=== PATIENT | female | born 1975 | race Caucasian/White ===

== ENCOUNTER 2019-04-25 07:32 | Day surgery (SDC) | payer BC, OTHER ==
[2019-04-25] MEDS ORDERED: Dexamethasone 4 MG/ML SDV IV ONE (07:33)
[2019-04-25] MEDS ORDERED: Sodium Chloride 0.9% 10 ML Syringe IV ONE (07:33)
[2019-04-25] MEDS ORDERED: Midazolam 1 MG/ML 2 ML SDV IV ONE (07:33)
[2019-04-25] MEDS ORDERED: Phenylephrine 10% Ophth Soln 5 ML Bot EYERT PRN (08:00)
[2019-04-25] MEDS ORDERED: Acetaminophen 325 MG Tab PO PRN (08:00)
[2019-04-25] MEDS ORDERED: Ondansetron 4 MG/2 ML SDV IVPUSH PRN (08:00)
[2019-04-25] MEDS: Sodium Chloride 0.9% 10 ML Syringe FLUSH PRN (08:09)
[2019-04-25] MEDS: Proparacaine 0.5% Ophth Soln 15 ML Bottle EYERT ONE (08:12)
[2019-04-25] MEDS: Povidone-Iodine 5% Sterile Ophth Soln 30 ML Bottle EYERT ONE ×2 (08:12→09:07)
[2019-04-25] MEDS: Moxifloxacin 0.5% Ophth Soln 3 ML Bottle EYERT ONE (08:13)
[2019-04-25] MEDS: Phenylephrine 10% Ophth Soln 5 ML Bot EYERT ONE (08:14)
[2019-04-25] MEDS: Timolol Maleate 0.5% Ophth Soln 5 ML Bottle EYERT ONE (08:15)
[2019-04-25] MEDS: Cataract Ophth Solution EYERT ONE (08:15)
[2019-04-25] MEDS: Lidocaine 1% 30 ML SDV INJECT ONE (09:06)
[2019-04-25] MEDS: Diclofenac Sodium 0.1% Ophth Soln 5 ML Bottle EYERT ONE (09:07)
[2019-04-25] MEDS: Dexamethasone/Tobramycin 0.1-0.3% Ophth Oint 3.5 GM Tube EYERT ONE (09:07)
[2019-04-25] MEDS: Tetracaine HCl/PF 0.5% 4 ML Bottle EYERT ONE (09:07)
[2019-04-25] MEDS: Apraclonidine 0.5% Ophth Soln 5 ML Bot EYERT ONE (09:07)
[2019-04-25] MEDS: Chondroitin Sulfate/Hyaluronate Sodium Ophth Inj 0.5 ML Syringe IOCULAR ONE (09:08)
[2019-04-25] MEDS: Chondroitin Sulfate/Hyaluronate Sodium Ophth Inj 0.75 ML Syringe EYERT ONE (09:08)
[2019-04-25] MEDS: Vancomycin 500 MG SDV EYERT ONE (09:08)
[2019-04-25] MEDS: Balanced Salt Solution Ophth Irrig 500 ML Bottle IOCULAR ONE (09:08)
[2019-04-25] MEDS: Carbachol 0.01% Intraocular 1.5 ML Vial EYERT ONE (09:09)
--- NOTE | 2019-04-25 15:22 | OR ---
DATE: 04/25/2019 PREOPERATIVE DIAGNOSES: 1. Visually significant mixed cataract, right eye. 2. Primary open angle glaucoma, right eye. POSTOPERATIVE DIAGNOSES: 1. Visually significant mixed cataract, right eye. 2. Primary open angle glaucoma, right eye. PROCEDURES: 1. Extracapsular cataract extraction with intraocular lens implant. 2. Placement of iStent for glaucoma control. SURGEON: Carlos Oh MD ANESTHESIA: Local MAC. INDICATION: The patient was seen in the clinic. She has complained of a slow progressive decrease in vision, difficulty seeing television, difficulty seeing up close. Visually significant cataract is noted. She also has mild primary open-angle glaucoma. I explained the options, offered cataract surgery, and I explained risks, including, but not limited to, infection, retinal detachment, loss of vision, need for additional surgery, amongst others. We discussed implant options. She has requested a monofocal implant. I offered surgery with or without the iStent. She requested the iStent procedure. OPERATIVE DESCRIPTION: The patient was prepped and draped in a sterile fashion and topical anesthesia was applied. Attention was placed on the operative eye. A sterile lid speculum was placed to allow operative exposure. Paracentesis was made temporal. Intracameral lidocaine was administered. Viscoelastic was injected. A full-thickness corneal incision was made using the trapezoidal blade. Bent needle cystotome was then used to make a small jose in the anterior capsule and a 360-degree curvilinear capsulorrhexis was created. Nucleus was then hydrodissected and hydrodelineated using balanced saline solution. Nucleus was then decompressed centrally and rotated and noted to be free of adhesions. Nucleus was then removed using the phacoemulsification handpiece. Additional viscoelastic was then injected into the capsular bag and the intraocular lens was inserted into the capsular bag. The iStent portion of the procedure was then performed. Following removal of the nucleus and cortex, the irrigation and aspiration handpiece was inserted to remove viscoelastic from the posterior surface of the IOL. Additional viscoelastic was then inserted into the anterior chamber angle directly opposite the corneal incision. Miochol was injected into the nasal iris to promote pupillary contraction. The patient's head was then rotated 35 degrees away from the initial position. The operating microscope was also rotated 35 degrees to achieve the proper orientation. The gonioprism was then placed onto the eye. The iStent was then inserted into the anterior chamber with the right hand and the stent was introduced into the pigmented trabecular meshwork. The stent was advanced beneath the trabecular meshwork until approximately two-thirds of the body was covered and then the stent was released from the insertion device. The stent was then tapped into its final resting position using the insertion device. The device was then reinspected to ensure that it was securely in position. The viscoelastic was aspirated from the anterior chamber. Wound and paracentesis sites were hydrated using balanced saline solution. Vancomycin 0.1 mL was injected into the anterior chamber. Intraocular lens was inspected and noted to be clear and well centered. Postoperative drops were placed and a sterile eye patch and shield were placed over the operative eye. The patient was then transported to the postoperative recovery area having tolerated the procedure well. No complications occurred. [facility] /[id number]
== END 2019-04-25 10:25 | disposition home or self-care (01) ==
LOC: DL.SDS 07:32
PROVIDERS: ATTEND Ophthalmology
DX: H40.1110 Primary open-angle glaucoma, right eye, stage unspecified (principal); H26.9 Unspecified cataract; E78.5 Hyperlipidemia, unspecified; E03.9 Hypothyroidism, unspecified; E66.9 Obesity, unspecified; L40.9 Psoriasis, unspecified; Q96.4 Mosaicism, 45, X/other cell line(s) with abnormal sex chromosome; Z68.37 Body mass index [BMI] 37.0-37.9, adult; Z79.899 Other long term (current) drug therapy; Z88.2 Allergy status to sulfonamides; Z88.1 Allergy status to other antibiotic agents; Z91.09 Other allergy status, other than to drugs and biological substances; Z91.048 Other nonmedicinal substance allergy status
CPT/HCPCS: 81025; A9270-GY; C1780; C1783; J1100; J2001; J2250; J3370

== ENCOUNTER 2023-10-15 08:50 | Emergency (ER) | payer OTHER ==
[2023-10-15] MEDS: Sodium Chloride 0.9% 10 ML Syringe FLUSH PRN (09:03)
[2023-10-15] MEDS: methylPREDNISolone Sodium Succinate 125 MG/2 ML SDV IVPUSH ONE (09:03)
[2023-10-15] MEDS: Sodium Chloride 0.9% 1,000 ML IV ONE (09:03)
[2023-10-15] MEDS: Famotidine 20 MG/2 ML SDV IVPUSH ONE (09:04)
[2023-10-15] MEDS: diphenhydrAMINE 50 MG/ML SDV IVPUSH ONE (09:04)
[2023-10-15 09:19] LABS: BASOPHILS PERCENT AUTO 0.1 % (0.0-1.0); EOSINOPHILS PERCENT AUTO 1.3 % (1.0-3.0); HEMATOCRIT 28.5 % (37.0-47.0); LYMPHOCYTES PERCENT AUTO 15.9 % (20.5-50.1); MEAN CORPUSCULAR HEMOGLOBIN 18.5 pg (27.0-34.0); MEAN CORPUSCULAR HGB CONC 28.1 g/dL (33.0-35.0); MEAN CORPUSCULAR VOLUME 65.8 fL (80-100); MONOCYTES PERCENT AUTO 9.6 % (2-8); NEUTROPHILS PERCENT AUTO 73.1 % (42.2-75.2); PLATELET COUNT,PLT 197 10^3/uL (150-450); RED BLOOD CELL COUNT 4.33 10^6/uL (4.2-5.4); WHITE BLOOD CELL COUNT,WBC 7.6 10^3/uL (5.0-10.0)
[2023-10-15 09:29] LABS: C-REACTIVE PROTEIN 1.23 ng/dL (<=0.50)
[2023-10-15 09:43] LABS: SEDIMENTATION RATE MANUAL 12 mm/hr (0-20)
== END 2023-10-15 10:20 | disposition home or self-care (01) ==
LOC: DL.ED 08:50
DX: T78.3XXA Angioneurotic edema, initial encounter (principal); E03.9 Hypothyroidism, unspecified; Z88.1 Allergy status to other antibiotic agents; Z91.048 Other nonmedicinal substance allergy status; Z88.2 Allergy status to sulfonamides; Z88.8 Allergy status to other drugs, medicaments and biological substances; Z79.899 Other long term (current) drug therapy
CPT/HCPCS: 36415; 84145; 85025; 85651; 86140; 96361; 96374; 96375; 99283; J1200; J2930; J3490; J7030; 99284

== ENCOUNTER 2024-03-16 10:58 | Emergency (ER) | payer OTHER ==
[2024-03-16 11:27] LABS: ALBUMIN 2.4 g/dL (3.4-5.0); ANION GAP 18.7 mEq/L (7-13); BILIRUBIN TOTAL 0.9 mg/dL (0.2-1.0); BUN/CREATININE RATIO 13.8 (No establ ref range); CREATININE 0.8 mg/dL (0.55-1.02); EST CRCL DRUG DOSING (CG) 72.65 mL/min; MAGNESIUM 1.7 mg/dL (1.8-2.4); POTASSIUM,K 2.7 mmol/L (3.5-5.1); PROTEIN TOTAL,TP 5.7 g/dL (6.4-8.2); TSH ULTRASENSITIVE 0.61 uIU/mL (0.36-3.74)
[2024-03-16 11:28] LABS: A/G RATIO 0.73; HEMATOCRIT 25.3 % (37.0-47.0); MEAN CORPUSCULAR HEMOGLOBIN 17.6 pg (27.0-34.0); MEAN CORPUSCULAR HGB CONC 26.9 g/dL (33.0-35.0); MEAN CORPUSCULAR VOLUME 65.4 fL (80-100); PLATELET COUNT,PLT 697 10^3/uL (150-450); RED BLOOD CELL COUNT 3.87 10^6/uL (4.2-5.4); WHITE BLOOD CELL COUNT,WBC 8.1 10^3/uL (5.0-10.0)
[2024-03-16 11:31] LABS: D-DIMER QUANTITATIVE < 100 ng/mL (0-400)
[2024-03-16] MEDS: Pantoprazole 40 MG in Sodium Chloride 0.9% 100 ML IV SCH (11:34)
[2024-03-16 11:36] LABS: HEMOGLOBIN 6.8 g/dL (12.0-16.0)
[2024-03-16 11:37] LABS: BASOPHILS PERCENT AUTO 0.5 % (0.0-1.0); EOSINOPHILS PERCENT AUTO 0.2 % (1.0-3.0); LYMPHOCYTES PERCENT AUTO 22.8 % (20.5-50.1); MONOCYTES PERCENT AUTO 9.8 % (2-8); NEUTROPHILS PERCENT AUTO 66.7 % (42.2-75.2)
[2024-03-16 11:38] LABS: LYMPHOCYTES PERCENT MAN 20 % (20-50); MONOCYTES PERCENT MAN 9 % (2-8); SEG NEUTROPHILS PERCENT MAN 71 % (42-75)
[2024-03-16 11:43] LABS: INR 1.1 (0.9-1.2); PROTHROMBIN TIME 11.6 SEC (9.0-12.0)
[2024-03-16] MEDS ORDERED: Potassium Chloride 20 MEQ in Premix Bag 1 BAG IV ONE (11:50)
[2024-03-16] MEDS: Magnesium Sulfate/Water 2 GM in Premix Bag 1 BAG IV ONE (11:59)
[2024-03-16] MEDS: Potassium Chloride 20 MEQ in Premix Bag 1 BAG IV ONE (11:59)
[2024-03-16] MEDS: Furosemide 20 MG/2 ML VIAL IVPUSH ONE (12:54)
== END 2024-03-16 14:30 ==
LOC: DL.ED 10:58
DX: S80.812A Abrasion, left lower leg, initial encounter (principal); I50.9 Heart failure, unspecified; D50.9 Iron deficiency anemia, unspecified; E87.6 Hypokalemia; E83.42 Hypomagnesemia; K92.1 Melena; E03.9 Hypothyroidism, unspecified; Z79.899 Other long term (current) drug therapy; Z88.2 Allergy status to sulfonamides; Z88.8 Allergy status to other drugs, medicaments and biological substances; Z91.048 Other nonmedicinal substance allergy status; X58.XXXA Exposure to other specified factors, initial encounter; Y99.0 Civilian activity done for income or pay; Y92.89 Other specified places as the place of occurrence of the external cause
CPT/HCPCS: 36415; 36430; 71045; 80053; 82272; 83735; 83880; 84443; 84484; 85025; 85379; 85610; 86850; 86900; 86901; 86920; 86922; 93010; 96365; 96366; 96368; 96375; 99285; 99285-25; J1940; J2470; J3475; J3480; J3490; P9016

== ENCOUNTER 2024-04-12 09:36 | Emergency (ER) | payer OTHER ==
[2024-04-12 10:30] LABS: BASOPHILS PERCENT AUTO 0.1 % (0.0-1.0); HEMATOCRIT 29.8 % (37.0-47.0); LYMPHOCYTES PERCENT AUTO 7.6 % (20.5-50.1); MEAN CORPUSCULAR HEMOGLOBIN 25.9 pg (27.0-34.0); MEAN CORPUSCULAR HGB CONC 30.2 g/dL (33.0-35.0); MEAN CORPUSCULAR VOLUME 85.9 fL (80-100); MONOCYTES PERCENT AUTO 4.3 % (2-8); PLATELET COUNT,PLT 584 10^3/uL (150-450); RED BLOOD CELL COUNT 3.47 10^6/uL (4.2-5.4); WHITE BLOOD CELL COUNT,WBC 20.2 10^3/uL (5.0-10.0)
[2024-04-12 11:08] LABS: A/G RATIO 0.53; ALBUMIN 1.8 g/dL (3.4-5.0); ANION GAP 12.5 mEq/L (7-13); BILIRUBIN TOTAL 0.7 mg/dL (0.2-1.0); BUN/CREATININE RATIO 12.3 (No establ ref range); CALCIUM 8.8 mg/dL (8.5-10.1); CREATININE 0.65 mg/dL (0.55-1.02); EST CRCL DRUG DOSING (CG) 85.65 mL/min; MAGNESIUM 1.8 mg/dL (1.8-2.4); POTASSIUM,K 4.5 mmol/L (3.5-5.1); PROTEIN TOTAL,TP 5.2 g/dL (6.4-8.2)
[2024-04-12] MEDS ORDERED: Iopamidol 612 MG/ML 100 ML Bottle IVPUSH ONE (11:21)
[2024-04-12] MEDS: Iopamidol 755 Mg/ML 100 ML Bottle IVPUSH ONE (12:18)
[2024-04-12] MEDS: DAPTOmycin 500 MG Vial IVPUSH ONE (13:47)
[2024-04-12] MEDS: Ertapenem 1 GM Vial IVPUSH ONE (13:47)
== END 2024-04-12 14:32 ==
LOC: DL.ED 09:36
DX: A41.9 Sepsis, unspecified organism (principal); R18.8 Other ascites; R79.89 Other specified abnormal findings of blood chemistry; I50.9 Heart failure, unspecified; E03.9 Hypothyroidism, unspecified; Z79.890 Hormone replacement therapy; Z79.899 Other long term (current) drug therapy; Z88.1 Allergy status to other antibiotic agents; Z88.2 Allergy status to sulfonamides; Z91.048 Other nonmedicinal substance allergy status
CPT/HCPCS: 36415; 51702; 71045; 71275; 74177; 80053; 83605; 83735; 83880; 84484; 85025; 87040; 93005; 96374; 96375; 99285; J0878; J1335; Q9967

== ENCOUNTER 2024-04-20 13:00 | Emergency (ER) | payer OTHER ==
[2024-04-20] MEDS: Ertapenem 1 GM Vial IVPUSH ONE (14:14)
== END 2024-04-20 16:42 | disposition home or self-care (01) ==
LOC: DL.ED 13:00
DX: S50.312A Abrasion of left elbow, initial encounter (principal); S09.90XA Unspecified injury of head, initial encounter; E03.9 Hypothyroidism, unspecified; Z88.1 Allergy status to other antibiotic agents; Z88.8 Allergy status to other drugs, medicaments and biological substances; Z88.2 Allergy status to sulfonamides; Z88.3 Allergy status to other anti-infective agents; Z91.048 Other nonmedicinal substance allergy status; W19.XXXA Unspecified fall, initial encounter
CPT/HCPCS: 70450; 72125; 73070; 96374; 99284; J1335; J1642

== ENCOUNTER 2024-09-27 18:14 | Emergency (ER) | payer MEDICAID, OTHER ==
[2024-09-27] MEDS: Iopamidol 612 MG/ML 100 ML Bottle IVPUSH ONE (19:36)
[2024-09-27] MEDS: Morphine 4 MG/ML Syringe IVPUSH ONE (19:49)
[2024-09-27] MEDS: Ondansetron 4 MG/2 ML SDV IVPUSH ONE (19:49)
[2024-09-27] MEDS: Sodium Chloride 0.9% 1,000 ML IV ONE (19:50)
[2024-09-27 20:08] LABS: BASOPHILS PERCENT AUTO 0.5 % (0.0-1.0); EOSINOPHILS PERCENT AUTO 1.8 % (1.0-3.0); HEMATOCRIT 28.1 % (37.0-47.0); HEMOGLOBIN 8.5 g/dL (12.0-16.0); LYMPHOCYTES PERCENT AUTO 12.5 % (20.5-50.1); MEAN CORPUSCULAR HEMOGLOBIN 31.1 pg (27.0-34.0); MEAN CORPUSCULAR HGB CONC 30.2 g/dL (33.0-35.0); MEAN CORPUSCULAR VOLUME 102.9 fL (80-100); MONOCYTES PERCENT AUTO 8.4 % (2-8); NEUTROPHILS PERCENT AUTO 76.8 % (42.2-75.2); PLATELET COUNT,PLT 491 10^3/uL (150-450); RED BLOOD CELL COUNT 2.73 10^6/uL (4.2-5.4); WHITE BLOOD CELL COUNT,WBC 9.3 10^3/uL (5.0-10.0)
[2024-09-27 20:30] LABS: A/G RATIO 0.77; ALBUMIN 2.4 g/dL (3.4-5.0); ANION GAP 16.2 mEq/L (7-13); BILIRUBIN TOTAL 1.2 mg/dL (0.2-1.0); BUN/CREATININE RATIO 27.3 (No establ ref range); CALCIUM 8.3 mg/dL (8.5-10.1); CREATININE 0.55 mg/dL (0.55-1.02); EST CRCL DRUG DOSING (CG) 104.5 mL/min; MAGNESIUM 2.3 mg/dL (1.8-2.4); POTASSIUM,K 4.2 mmol/L (3.5-5.1); PROTEIN TOTAL,TP 5.5 g/dL (6.4-8.2)
[2024-09-27 20:39] LABS: LACTIC ACID 2.5 mmol/L (0.4-2.0)
[2024-09-27 22:22] LABS: APPEARANCE,URINE CLEAR (CLEAR); BILIRUBIN,URINE SMALL (NEGATIVE); COLOR,URINE YELLOW (YELLOW); GLUCOSE,URINE NEGATIVE (NEGATIVE); KETONES,URINE NEGATIVE (NEGATIVE); LEUKOCYTE ESTERASE,URINE NEGATIVE (NEGATIVE); NITRITE,URINE NEGATIVE (NEGATIVE); OCCULT BLOOD,URINE NEGATIVE (NEGATIVE); PROTEIN,URINE NEGATIVE (NEGATIVE)
[2024-09-27] MEDS: Take Home: Acetaminophen/HYDROcodone 325-5 MG, 5 Tab Pack PO ONE (23:26)
[2024-09-27] MEDS: Take Home: Ondansetron 4 MG Tab.DIS, 5 Tab Pack PO ONE (23:26)
== END 2024-09-27 23:32 | disposition home or self-care (01) ==
LOC: DL.ED 18:14
DX: S22.39XA Fracture of one rib, unspecified side, initial encounter for closed fracture (principal); R11.10 Vomiting, unspecified; R74.01 Elevation of levels of liver transaminase levels; K62.89 Other specified diseases of anus and rectum; E03.9 Hypothyroidism, unspecified; Z88.1 Allergy status to other antibiotic agents; Z88.8 Allergy status to other drugs, medicaments and biological substances; Z91.048 Other nonmedicinal substance allergy status; Z79.890 Hormone replacement therapy; Z79.899 Other long term (current) drug therapy; X58.XXXA Exposure to other specified factors, initial encounter
CPT/HCPCS: 36415; 71045; 74177; 80053; 81003; 83605; 83690; 83735; 84484; 85025; 87428-QW; 93005; 93010; 96361; 96374; 96375; 99284; 99284-25; A9270-GY; J2270; J2405; J7030; Q0162; Q9967

== ENCOUNTER 2025-01-29 12:41 | Emergency (ER) | payer MEDICAID ==
[2025-01-29 12:58] LABS: HEMATOCRIT 27.2 % (37.0-47.0); HEMOGLOBIN 8.8 g/dL (12.0-16.0); MEAN CORPUSCULAR HEMOGLOBIN 27.5 pg (27.0-34.0); MEAN CORPUSCULAR HGB CONC 32.4 g/dL (33.0-35.0); PLATELET COUNT,PLT 124 10^3/uL (150-450); WHITE BLOOD CELL COUNT,WBC 13.6 10^3/uL (5.0-10.0)
[2025-01-29 13:01] LABS: LYMPHOCYTES PERCENT AUTO 10.8 % (20.5-50.1); NEUTROPHILS PERCENT AUTO 85.6 % (42.2-75.2)
[2025-01-29 13:02] LABS: BASOPHILS PERCENT AUTO 0.2 % (0.0-1.0); MONOCYTES PERCENT AUTO 2.4 % (2-8)
[2025-01-29 13:14] LABS: ALBUMIN 2.9 g/dL (3.4-5.0); ANION GAP 18.1 mEq/L (7-13); BILIRUBIN TOTAL 0.8 mg/dL (0.2-1.0); BUN/CREATININE RATIO 34.2 (No establ ref range); CALCIUM 9.1 mg/dL (8.5-10.1); CREATININE 0.73 mg/dL (0.55-1.02); EST CRCL DRUG DOSING (CG) 74.84 mL/min; MAGNESIUM 1.5 mg/dL (1.8-2.4); POTASSIUM,K 5.1 mmol/L (3.5-5.1); PROTEIN TOTAL,TP 5.3 g/dL (6.4-8.2)
[2025-01-29 13:15] LABS: A/G RATIO 1.21
[2025-01-29 13:26] LABS: BAND PERCENT MAN 8 %; EOSINOPHILS PERCENT MAN 1 % (1-3); LYMPHOCYTES PERCENT MAN 11 % (20-50); MONOCYTES PERCENT MAN 2 % (2-8); SEG NEUTROPHILS PERCENT MAN 78 % (42-75)
[2025-01-29] MEDS: Lidocaine 1% 5 ML VIAL INJECT ONE (14:23)
[2025-01-29] MEDS ORDERED: Bacitracin Oint 1 GM U/D Packet TOP ONE (14:23)
== END 2025-01-29 14:55 | disposition home or self-care (01) ==
LOC: DL.ED 12:41
DX: S02.2XXA Fracture of nasal bones, initial encounter for closed fracture (principal); S01.511A Laceration without foreign body of lip, initial encounter; S01.111A Laceration without foreign body of right eyelid and periocular area, initial encounter; Z88.1 Allergy status to other antibiotic agents; Z91.048 Other nonmedicinal substance allergy status; Z88.2 Allergy status to sulfonamides; Z88.8 Allergy status to other drugs, medicaments and biological substances; Z79.890 Hormone replacement therapy; E78.00 Pure hypercholesterolemia, unspecified; Z79.01 Long term (current) use of anticoagulants; W18.39XA Other fall on same level, initial encounter; Y93.89 Activity, other specified
CPT/HCPCS: 12011; 12013; 36415; 70450; 70486; 72125; 80053; 83735; 85025; 99284; J2003